=== PATIENT | male | born 1955 | race Caucasian/White ===

== ENCOUNTER 2016-03-06 11:00 | Day surgery (SDC) | payer OTHER ==
[~2016-03-06 11:00] MED LIST: ATORVASTATIN CA40 MG PO; HYDROCHLOROTHIA25 MG PO; LISINOPRIL10 MG PO; METFORMIN HCL500 MG PO
--- NOTE | 2016-03-06 15:27 | Provider's Discharge Care Plan ---
Problem, Goal, Plan Problem List 1. Rectal polyp
--- NOTE | 2016-03-06 15:27 | Provider's Discharge Care Plan ---
Problem, Goal, Plan Problem List 1. Rectal polyp
--- NOTE | 2016-03-06 19:15 | OPERATIVE REPORT ---
DATE OF SURGERY: 03/06/2016 SURGEON: Darryl Estrella MD PREOPERATIVE DIAGNOSIS: 1. Colon cancer risk POSTOPERATIVE DIAGNOSIS: 1. Rectal polyps x2 PROCEDURE PERFORMED: 1. Colonoscopy with forceps polypectomy ANESTHESIA: Total IV general. COMPLICATIONS: No intraoperative complications were encountered. INDICATIONS: The patient is a 60-year-old man undergoing a second screening colonoscopy. SURGICAL TECHNIQUE: The patient was taken to the endoscopy suite, where total IV general was administered and the patient placed in the left lateral decubitus position. The well-lubricated colonoscope was advanced the length of colon under direct vision. The cecum was reached. On withdrawal, the entire colon was inspected. There were 2 sessile polyps in his rectum, one at 15 cm and one about 5 cm. Both were about 3 mm in size. These were removed with multiple bites of biopsy forceps and submitted together in the same specimen container. There was no ongoing bleeding. A retroflexed view confirmed the more proximal polyp, but showed nothing else. The patient left in good condition.
== END 2016-03-06 16:40 | disposition home or self-care (01) ==
LOC: OR SRH 11:00 → SCU SRH 11:04
PROVIDERS: Surgery
PROC: 0DBP8ZX Excision of Rectum, Via Natural or Artificial Opening Endoscopic, Diagnostic (ICD-10-PCS; principal; 2016-03-06 13:00)
DX: Z12.11 Encounter for screening for malignant neoplasm of colon (principal); D12.8 Benign neoplasm of rectum; I10 Essential (primary) hypertension; E11.9 Type 2 diabetes mellitus without complications; Z79.84 Long term (current) use of oral hypoglycemic drugs
CPT/HCPCS: 29229; 29240; 50004; 60001; 82944; 83526